=== PATIENT | female | born 1965 | race Caucasian/White ===

== ENCOUNTER 2016-09-30 13:36 | Emergency (ER) | payer OTHER ==
[~2016-09-30] VITALS: Ht 157.5 cm; Wt 112.2 kg
[~2016-09-30 13:36] MED LIST: ALBUAER2 PO; AMIT150T PO; ATV/1 PO; BACL10TA PO; BND25 PO; BUPR-79 PO; BUSP-8 PO; CALC500C3 PO; CARB200T PO; CHOL100010 PO; DOCU100T7 PO; FLUO20CA35 PO; IBUP-1451 PO; IPRASOL4 INH; LEVO75TA PO; MECL1TAB42 PO; METO25TA56 PO; MULT-506 PO; OMEP20TA PO; SIMV40TA2 PO; [UNRECOGNIZED DRUG - CODE] TOP
[2016-09-30 13:42] VITALS: TEMP 36.6; Ht 157.5 cm; Wt 112.2 kg
--- NOTE | 2016-09-30 14:02 | EMERGENCY ROOM VISIT NOTE ---
History First contact with patient: 13:48 Chief Complaint: FALL Stated Complaint: FELL, RT FOOT/ELBOW INJURY History of Present Illness The patient is a 51 year old female who presents to the Emergency Room via private vehicle with complaints of "fell,right foot/elbow injury. The patient states that she fell a couple weeks ago in the afternoon time and is not sure why but has been seen by an emergency department in [place] as well as her doctors who are investigating reasons why she fell. She states that she was seen for her injuries at that time and told that it was likely bruised. Patient is from [place] but is here because her mother is in [place] receiving treatments. Patient notes that she was told it was bruised but not feeling any better. She feels the right foot pain has worsened and points to the right top of her foot as a location of the pain she rates as a 7/10. There is no numbness or tingling. There is right elbow pain over the olecranon. She's been taking ibuprofen with relief. She does not want any pain meds or ice. She also points to the right lateral portion of the eye noting that there is little bit of blood on the white portion of the eye. The patient states that she has been coughing a lot with a dry cough. There's been no vision changes or pain. Review of Systems A complete 6-point Review of Systems was discussed with the patient, with pertinent positives and negatives listed in the History of Present Illness. All remaining Review of Systems questions can be considered negative unless otherwise specified. Past Medical/Surgical History Medical Problems: (1) Anxiety (2) Bipolar disorder (3) High blood pressure Surgical Problems: (1) H/O: hysterectomy Family History Heart disease, high blood pressure Social History Smoking Status: Former Smoker Alcohol Use: none Drug Use: none Social History: Patient lives with roommate, denies alcohol and tobacco use. Current/Historical Medications Scheduled Amitriptyline Hcl (Amitriptyline Hcl), 150 MG PO HS Bupropion (Wellbutrin Sr), 150 MG PO BID Buspirone Hcl (Buspirone Hcl), 20 MG PO HS Calcium Carbonate (Tums), 1,000 MG PO DAILY Carbamazepine (Tegretol), 200 MG PO Q12 Cholecalciferol (Vitamin D-3), 400 PO DAILY Diphenhydramine Hcl (Benadryl), 25 MG PO HS Docusate Sodium (Stool Softener), 100 MG PO DAILY Fish Oil ([place]-3), 1 CAP PO DAILY Fluoxetine (Prozac), 60 MG PO DAILY Levothyroxine Sodium (Synthroid), 75 MCG PO DAILY Metoprolol Tartrate (Lopressor) (Lopressor), 50 MG PO BID Multivitamin (Multivitamin), 1 TAB PO DAILY Omeprazole (Omeprazole), 20 MG PO BID Ondasetron Odt (Zofran Odt), 4 MG SL Q8H Simvastatin (Zocor), 40 MG PO DAILY Sumatriptan Succinate (Imitrex), 50 MG PO UD Scheduled PRN Albuterol Hfa (Ventolin Hfa), 2 PUFFS INH Q4H PRN for Shortness of Breath Baclofen (Lioresal), 10 MG PO TID PRN for Pain Betamethasone Maya (Betamethasone Valerate), 1 APPLN TOP BID PRN for AFFECTED AREA Fluticasone Prop/Salmeterol (Advair Diskus 250/50 60 Dose), 2 PUFFS INH DAILY PRN for WH Ibuprofen Tab (Motrin), 800 MG PO Q8H PRN for Pain Ipratropium-Albuterol (Duoneb), 1 TREATMENT INH Q6 PRN for SOB/Wheezing Lorazepam (Ativan), 1 MG PO Q8 PRN for Anxiety Meclizine Hcl (Meclizine Hcl), 25 MG PO TID PRN for Dizziness or Vertigo Allergies Coded Allergies: Lisinopril (Verified Allergy, Unknown, ., 09/30/16) Sulfa Antibiotics (Verified Allergy, Unknown, ., 09/30/16) Topiramate (Verified Allergy, Unknown, ., 09/30/16) Physical Exam Vital Signs Date Time Temp Pulse Resp B/P Pulse Ox O2 Delivery O2 Flow Rate FiO2 09/30/16 15:29 93 09/30/16 15:20 82 17 133/92 93 Room Air 09/30/16 14:31 85 132/91 92 09/30/16 13:42 36.6 92 17 124/86 92 Room Air Physical Exam VITAL SIGNS - Vital signs and nursing notes were reviewed. Patient is afebrile , normotensive, non-tachycardic and is saturating on room air 92%. GENERAL - 51-year-old female appearing her stated age who is in no acute distress. Communicates well with provider and answers questions appropriately. SKIN - Without rashes. HEAD - NC/AT. EYES - PERRL with EOMI bilaterally. Sclera anicteric. Palpebral conjunctiva pink and moist with no injection noted. Subconjunctival hemorrrhage noted in right lateral portion of right eye. Otherwise unremarkable. EARS - No deformities of external structures noted on gross examination bilaterally. NOSE - Midline and without cyanosis. No epistaxis or purulent drainage noted. Septum midline without deviation or septal hematoma noted. MOUTH/OROPHARYNX - Without perioral cyanosis. Buccal mucosa pink and moist and without leukoplakia. Tongue midline with equal elevation of palate bilaterally. No tonsillar hypertrophy, erythema, or exudates noted. Good dentition noted. NECK - Neck with FROM. Supple to palpation. No lymphadenopathy noted. No nuchal rigidity. No Meningismus. LUNGS - Chest wall symmetric without accessory muscle use, intercostals retractions, or central cyanosis. Normal vesicular breath sounds CTA B/L. No wheezes, rales, or rhonchi appreciated. CARDIAC - RRR with S1/S2. No murmur, rubs, or gallops appreciated. EXTREMITIES - No clubbing or peripheral cyanosis. No pretibial edema present. Pulses are intact. There is no tenderness of the right lower extremity. No tenderness in the right upper extremity. Full range of motion of the extremity' s. Vascular intact extremities. +5/5 strength noted in UE/LE bilaterally. NEUROLOGIC - Cranial nerves II through XII grossly intact. PSYCH - Pt is very pleasant and interacts well with examiner. Medical Decision & Procedures ER Provider Diagnostic Interpretation: CHEST 2 VIEWS ROUTINE CLINICAL HISTORY: Cough COMPARISON STUDY: 09/30/2016 FINDINGS: The heart is normal in size. There is no failure. There are increased markings within the left lower lobe and lingula, likely atelectatic. There is no lobar consolidation. There are no pleural effusions.[ IMPRESSION: Increased lingula and left lower lobe markings, likely atelectatic. No evidence of lobar consolidation. No evidence of failure. Electronically signed by: Freddie Sullivan M.D. 09/30/2016 3:06 PM Dictated Date/Time: 09/30/2016 3:03 PM RIGHT ELBOW MIN 3 VIEWS ROUTINE CLINICAL HISTORY: Right elbow pain. History of trauma. COMPARISON: None. DISCUSSION: The fat pads are not displaced. No acute fractures or dislocations are visualized. IMPRESSION: No fractures or dislocations identified. Electronically signed by: Freddie Sullivan M.D. 09/30/2016 2:53 PM Dictated Date/Time: 09/30/2016 2:53 PM RIGHT FOOT 3 VIEWS HISTORY: Right foot pain x weeks s/p fall Right COMPARISON: None. FINDINGS: There is no fracture or dislocation. Soft tissues are unremarkable. No radiopaque foreign bodies. Small plantar heel spur. IMPRESSION: No fractures. Electronically signed by: Fabian Sosa M.D. 09/30/2016 2:54 PM Dictated Date/Time: 09/30/2016 2:51 PM Medical Decision Patient was seen and evaluated as above. After obtaining a thorough history and physical examination radiographs were obtained of the elbow and foot secondary to subjective and objective examination findings. The fall occurred several weeks ago and she was evaluated in the emergency department in [place] and no fractures were notified. Radiograph results as above. I agree with radiologist findings. No acute fractures. Patient likely has a contusion of these regions. There was no tenderness to palpation or range of motion restriction. She was neurovascularly intact. She declined any splinting, crutches or sling. She was noted to have an O2 sat of 92% coming into the emergency department therefore this was repeated and still found to be 92. Patient notes that she does at times have low oxygen saturation and has asthma. She notes a dry cough for the past few weeks. This is likely resulted in a subconjunctival hemorrhage of the eye. She was educated upon this finding. Chest x-ray did not show any pneumonia. There was a note of atelectasis but the patient notes that this is chronic and she knew about it even before I mentioned it. The patient stated that she was here just to see if the bones are broken. The patient seemed happy with plan of care, was educated upon today 's findings, had questions answered prior to discharge and was discharged home in good condition. She is to follow-up with her family doctor in [place] regarding her asthma. She is already taking Advair, has a rescue inhaler. In the evaluation and treatment of this patient following differential diagnoses were entertained: Pneumonia, asthma, arm fracture, foot fracture, among others. Impression Primary Impression: Fall Additional Impressions: Contusion of multiple sites Elbow pain, right Foot pain, right Departure Information Dispostion Home / Self-Care Condition GOOD Referrals No Doctor, Assigned (PCP) Patient Instructions My [facility] Additional Instructions You have been treated in the Emergency Department for Elbow Pain, foot pain and subconjunctival hemorrhage of your eye. For pain control, you can use the following [id number] medicines (if >12 yo): - Regular strength (325mg/tab) Tylenol (acetaminophen) 2 tabs every 4-6 hours as needed. Do not exceed 12 tablets in a 24 hour period. Avoid taking more than 4 grams (4000 mg) of Tylenol per day. This includes any other sources of acetaminophen you may take on a regular basis. - Regular strength (200 mg/tab) Advil (ibuprofen) 1-2 tabs every 4-6 hours as needed. Do not exceed a dose of 3200 mg per day. If this is a recent injury (<24 hrs), ice can be applied to the area of pain for the first 3 days to help decrease pain and inflammation. Please rest your foot and elbow. Please follow-up with her family doctor back in [place] as we discussed. Please discuss the possibility of referral to orthopedic group out in that area. Please follow-up with her family doctor regarding your asthma. Return to the Emergency Department if your current symptoms worsen despite treatment course outlined above, or if you develop any of the following symptoms : intractable pain despite aforementioned treatment course or new onset of numbness or tingling of the arm. Please return to the emergency department with any new/concerning symptoms from your standpoint. Problem Qualifiers Primary Impression: Fall Encounter type: initial encounter Qualified Codes: W19.XXXA - Unspecified fall, initial encounter
[2016-09-30] MEDS ORDERED: VNTHFA/IN INH (14:12)
[2016-09-30] MEDS ORDERED: CHOL1TAB PO (14:21)
[2016-09-30] MEDS ORDERED: METO50TA16 PO (14:27)
[2016-09-30] MEDS ORDERED: ONDA4TAB10 SL (14:33)
[2016-09-30] MEDS ORDERED: SUMA50TA15 PO (14:35)
[2016-09-30] MEDS ORDERED: OMEG10007 PO (14:36)
[2016-09-30] MEDS ORDERED: ADVIN25/60 INH (14:38)
--- NOTE | 2016-09-30 14:55 | DIAGNOSTIC IMAGING REPORT ---
RIGHT ELBOW MIN 3 VIEWS ROUTINE CLINICAL HISTORY: Right elbow pain. History of trauma. COMPARISON: None. DISCUSSION: The fat pads are not displaced. No acute fractures or dislocations are visualized. IMPRESSION: No fractures or dislocations identified. Electronically signed by: Freddie Sullivan M.D. 09/30/2016 2:53 PM Dictated Date/Time: 09/30/2016 2:53 PM
--- NOTE | 2016-09-30 14:55 | DIAGNOSTIC IMAGING REPORT ---
RIGHT FOOT 3 VIEWS HISTORY: Right foot pain x weeks s/p fall Right COMPARISON: None. FINDINGS: There is no fracture or dislocation. Soft tissues are unremarkable. No radiopaque foreign bodies. Small plantar heel spur. IMPRESSION: No fractures. Electronically signed by: Fabian Sosa M.D. 09/30/2016 2:54 PM Dictated Date/Time: 09/30/2016 2:51 PM
--- NOTE | 2016-09-30 15:07 | DIAGNOSTIC IMAGING REPORT ---
CHEST 2 VIEWS ROUTINE CLINICAL HISTORY: Cough COMPARISON STUDY: 09/30/2016 FINDINGS: The heart is normal in size. There is no failure. There are increased markings within the left lower lobe and lingula, likely atelectatic. There is no lobar consolidation. There are no pleural effusions.[ IMPRESSION: Increased lingula and left lower lobe markings, likely atelectatic. No evidence of lobar consolidation. No evidence of failure. Electronically signed by: Freddie Sullivan M.D. 09/30/2016 3:06 PM Dictated Date/Time: 09/30/2016 3:03 PM
[2016-09-30 15:20] VITALS: BP 133/92; PULSE 82
[2016-09-30 15:29] VITALS: O2SAT 93
== END 2016-09-30 15:29 | disposition home or self-care (01) ==
LOC: C.EDB 13:37 → C.EDD 15:29
DX: S50.01XA Contusion of right elbow, initial encounter (principal); S90.31XA Contusion of right foot, initial encounter; M25.521 Pain in right elbow; M79.671 Pain in right foot; R05 Cough; F31.9 Bipolar disorder, unspecified; F41.9 Anxiety disorder, unspecified; Z79.899 Other long term (current) drug therapy; Z88.1 Allergy status to other antibiotic agents; Z88.2 Allergy status to sulfonamides; Z88.8 Allergy status to other drugs, medicaments and biological substances; Z87.891 Personal history of nicotine dependence; W19.XXXA Unspecified fall, initial encounter